=== PATIENT | male | born 2000 | race Caucasian/White ===

== ENCOUNTER 2024-08-05 20:32 | Emergency (ER) | payer MEDICAID ==
[~2024-08-05] VITALS: Ht 162.6 cm; Wt 70.0 kg
[2024-08-05 20:42] VITALS: O2SAT 99
[2024-08-05 20:56] VITALS: BP 136/56; PULSE 52; RESP 18; TEMP 98.3; O2SAT 100
== END 2024-08-05 22:14 | disposition home or self-care (01) ==
LOC: ER 20:32
DX: F41.0 Panic disorder [episodic paroxysmal anxiety] (principal)
CPT/HCPCS: 99281